=== PATIENT | female | born 1990 | race Caucasian/White ===

== ENCOUNTER 2022-08-05 05:48 | Emergency (ER) | payer SELFPAY ==
[~2022-08-05] VITALS: Ht 167.6 cm; Wt 77.1 kg
--- NOTE | 2022-08-05 06:20 | NUR ---
PATIENT BIBSELF C/O PANIC ATTACK STARTED 2 HOURS AGO. PATIENT IS A/O X 4, RR EVEN AND UNLABORED NO SOB NOTED. PATIENT TO ER BED 02. WILL CONTINUE TO MONITOR.
--- NOTE | 2022-08-05 06:35 | NUR ---
SEEN BY DR MEIER AT BEDSIDE
[2022-08-05] MEDS ORDERED: LORAZEPAM 0.5 MG TABLET ONE (06:42)
[2022-08-05] MEDS ORDERED: LORA-259 PO (06:45)
--- NOTE | 2022-08-05 06:45 | NUR ---
EKG DONE AT BEDSIDE
--- NOTE | 2022-08-05 06:51 | NUR ---
Patient discharged to home in stable condition. Written and verbal after care instructions given. Patient verbalizes understanding of instruction.
[2022-08-05 06:52] VITALS: BP 148/73
[2022-08-05] MEDS ORDERED: LORAZEPAM 0.5 MG TABLET PO ONE (07:00)
== END 2022-08-05 06:53 | disposition home or self-care (01) ==
LOC: ER 05:51
DX: F41.9 Anxiety disorder, unspecified (principal); Z60.2 Problems related to living alone; Z79.52 Long term (current) use of systemic steroids